=== PATIENT | female | born 1975 | race American Indian/Alaskan Native ===

== ENCOUNTER 2018-04-02 06:59 | Day surgery (SDC) | payer MEDICAID ==
[2018-04-02] VITALS (10 sets, daily range): BP systolic 93–108; BP diastolic 59–74
[~2018-04-02] VITALS: Ht 157.5 cm; Wt 90.9 kg
[~2018-04-02 06:59] MED LIST: ATOR10TA87 PO; CARV6.253 PO; ENOX100D2 SQ; FURO-149 PO; LISI-604 PO; SPIR50TA5 PO
[2018-04-02] MEDS ORDERED: normal saline 1000ml 1,000 ML IV PRN (07:20)
[2018-04-02] MEDS ORDERED: albumin 25% 50mL bottle X 2 BOTTLES IV ONE (07:20)
[2018-04-02] MEDS ORDERED: RIVA20TA PO (07:30)
[2018-04-02] MEDS ORDERED: LOSA25TA96 PO (07:30)
[2018-04-02] MEDS ORDERED: ASPI-611 PO (07:30)
[2018-04-02] MEDS ORDERED: LIDOcaine 1% 30ml preserv. free vial SQ ONE (08:30)
== END 2018-04-02 10:40 | disposition home or self-care (01) ==
LOC: SSTAY O 06:59
PROVIDERS: ATTEND Radiology Diagnostic Radiology
DX: J90 Pleural effusion, not elsewhere classified (principal); R18.8 Other ascites; K74.60 Unspecified cirrhosis of liver; I42.8 Other cardiomyopathies; I11.0 Hypertensive heart disease with heart failure; I50.9 Heart failure, unspecified; E78.5 Hyperlipidemia, unspecified; F10.21 Alcohol dependence, in remission; F15.11 Other stimulant abuse, in remission; Z87.01 Personal history of pneumonia (recurrent); Z86.14 Personal history of Methicillin resistant Staphylococcus aureus infection; Z86.74 Personal history of sudden cardiac arrest; Z87.891 Personal history of nicotine dependence; Z79.82 Long term (current) use of aspirin; Z86.73 Personal history of transient ischemic attack (TIA), and cerebral infarction without residual deficits; Z79.899 Other long term (current) drug therapy; Z98.890 Other specified postprocedural states
CPT/HCPCS: 32555; 49083; 71045; C1729; J3490; J7030

== ENCOUNTER 2018-07-30 06:56 | Day surgery (SDC) | payer MEDICAID ==
[~2018-07-30] VITALS: Ht 157.5 cm; Wt 96.3 kg
[2018-07-30] VITALS (7 sets, daily range): BP systolic 103–125; BP diastolic 64–75
[~2018-07-30 06:56] MED LIST changes: +ASPI-611 PO; -ENOX100D2 SQ; +LIDOcaine 1% 30ml preserv. free vial SQ STA; -LISI-604 PO; +LOSA25TA96 PO; +RIVA20TA PO; -SPIR50TA5 PO
[2018-07-30] MEDS ORDERED: albumin 25% 100mL bottle x 1 IV PRN (07:15)
[2018-07-30] MEDS ORDERED: normal saline 1000ml 1,000 ML IV PRN (07:15)
[2018-07-30] MEDS ORDERED: LACT1CAP65 PO (07:25)
[2018-07-30] MEDS ORDERED: LEVO50TA8 PO (07:25)
[2018-07-30] MEDS ORDERED: ASCO500C15 PO (07:25)
[2018-07-30] MEDS ORDERED: FERR134T2 PO (07:25)
== END 2018-07-30 09:42 | disposition home or self-care (01) ==
LOC: SSTAY O 06:56
PROVIDERS: ATTEND Radiology Vascular & Interventional Radiology
DX: R18.8 Other ascites (principal); Z53.8 Procedure and treatment not carried out for other reasons; I50.9 Heart failure, unspecified; J91.8 Pleural effusion in other conditions classified elsewhere; I42.9 Cardiomyopathy, unspecified; Z86.73 Personal history of transient ischemic attack (TIA), and cerebral infarction without residual deficits; Z79.899 Other long term (current) drug therapy; Z98.890 Other specified postprocedural states
CPT/HCPCS: 49083; 76604; C1729; J7030; P9047

== ENCOUNTER 2018-11-11 07:38 | Day surgery (SDC) | payer MEDICAID ==
[2018-11-11] VITALS (13 sets, daily range): BP systolic 95–111; BP diastolic 50–77
[~2018-11-11] VITALS: Ht 157.5 cm; Wt 94.0 kg
[~2018-11-11 07:38] MED LIST changes: +ASCO500C15 PO; +FERR134T2 PO; +LACT1CAP65 PO; +LEVO50TA8 PO; -LIDOcaine 1% 30ml preserv. free vial SQ STA
[2018-11-11 09:57] LABS: AMYLASE,BODY FLUID 19 U/L; GLUCOSE,BODY FLUID 111 MG/DL; LDH,BODY FLUID 75 U/L; TOTAL PROTEIN,BODY FLUID 4.6 G/DL
[2018-11-11 10:33] LABS: BF RBC COUNT 84750 /CU MM; BF WBC COUNT 6 /CU MM (0-1000); BFAPPEAR BLOODY; BFCOLOR RED; BFVOLUME 60 ML
[2018-11-11 10:37] LABS: LYMPHOCYTES,BODY FLUID 30 %; MONOCYTES,BODY FLUID 10 %; NEUTROPHILS,BODY FLUID 60 %
== END 2018-11-11 12:12 | disposition home or self-care (01) ==
LOC: SSTAY O 07:38
PROVIDERS: ATTEND Radiology Diagnostic Radiology
DX: R18.8 Other ascites (principal); D64.9 Anemia, unspecified; I25.2 Old myocardial infarction; I42.8 Other cardiomyopathies; F15.10 Other stimulant abuse, uncomplicated; Z86.73 Personal history of transient ischemic attack (TIA), and cerebral infarction without residual deficits; Z95.0 Presence of cardiac pacemaker; Z79.82 Long term (current) use of aspirin; Z79.899 Other long term (current) drug therapy
CPT/HCPCS: 49083; 82150; 82945; 83615; 84157; 87070; 89051; C1729

== ENCOUNTER 2018-11-26 08:24 | Day surgery (SDC) | payer MEDICAID ==
[2018-11-26] VITALS (9 sets, daily range): BP systolic 87–103; BP diastolic 51–69
[~2018-11-26] VITALS: Ht 157.5 cm; Wt 99.6 kg
[~2018-11-26 08:24] MED LIST changes: -ASCO500C15 PO
[2018-11-26] MEDS ORDERED: Ibuprofen PO (09:24)
[2018-11-26] MEDS ORDERED: Amoxicillin PO (09:24)
[2018-11-26] MEDS ORDERED: CHOL100046 PO (09:24)
[2018-11-26] MEDS ORDERED: albumin 25% 100mL bottle x 1 IV PRN (11:10)
[2018-11-26 11:45] LABS: ALBUMIN,BODY FLUID 2.2 G/DL; GLUCOSE,BODY FLUID 107 MG/DL; LDH,BODY FLUID 64 U/L; TOTAL PROTEIN,BODY FLUID 4.1 G/DL
[2018-11-26 12:53] LABS: LYMPHOCYTES,BODY FLUID 30 %; NEUTROPHILS,BODY FLUID 16 %
[2018-11-26 13:05] LABS: BASOPHILS,BODY FLUID 0 %; BF MESOTHELIAL CELLS FEW; BF RBC COUNT 20500 /CU MM; BF WBC COUNT 83 /CU MM (0-1000); BFAPPEAR CLOUDY; BFCOLOR AMBER; BFVOLUME 60 ML; EOSINOPHILS,BODY FLUID 0 %
[2018-11-26 13:06] LABS: MONOCYTES,BODY FLUID 54 %
== END 2018-11-26 12:00 | disposition home or self-care (01) ==
LOC: SSTAY O 08:24
PROVIDERS: ATTEND Radiology Vascular & Interventional Radiology
DX: R18.8 Other ascites (principal); Z86.73 Personal history of transient ischemic attack (TIA), and cerebral infarction without residual deficits; Z95.0 Presence of cardiac pacemaker; Z79.899 Other long term (current) drug therapy
CPT/HCPCS: 49083; 82042; 82945; 83615; 84157; 87070; 89051; C1729; P9047

== ENCOUNTER 2018-11-26 14:31 | Outpatient (CLI) | payer MEDICAID ==
[~2018-11-26 14:31] MED LIST changes: +Amoxicillin PO; +CHOL100046 PO; +Ibuprofen PO
[2018-11-26 16:30] LABS: ABSOLUTE RETICS # 69200 /CUMM (23000-93000); BASOPHILS # (AUTO) 0.1 X10'3 (0-0.2); BASOPHILS % (AUTO) 1.1 % (0-1); EOSINOPHILS # (AUTO) 0.2 X10'3 (0-0.9); HEMATOCRIT 29.7 % (35.0-45.0); HEMOGLOBIN 9.6 g/dl (12.0-16.0); LYMPHOCYTES # (AUTO) 1.4 X10'3 (1.1-4.8); LYMPHOCYTES % (AUTO) 17.9 % (21-51); MEAN CORPUSCULAR HEMOGLOBIN 28.2 PG (27.0-31.0); MEAN CORPUSCULAR HGB CONC 32.2 g/dL (33.0-36.5); MEAN CORPUSCULAR VOLUME 87.7 FL (78-98); MEAN PLATELET VOLUME 9.3 FL (7.4-10.4); MONOCYTES # (AUTO) 0.6 X10'3 (0-0.9); MONOCYTES % (AUTO) 7.2 % (2-12); NEUTROPHILS # (AUTO) 5.5 X10'3 (1.8-7.7); NEUTROPHILS % (AUTO) 70.8 % (42-75); PLATELET COUNT 218 X10'3 (140-440); RED BLOOD COUNT 3.39 X10'6 (4.20-5.60); RED CELL DISTRIBUTION WIDTH 16.9 % (11.5-14.5); WHITE BLOOD COUNT 7.8 X10'3 (4.5-11.0)
[2018-11-26 16:52] LABS: ALANINE AMINOTRANSFERASE 13 U/L (12-78); ALBUMIN 3.3 G/DL (3.4-5.0); ALBUMIN/GLOBULIN RATIO 0.9 (1.1-1.5); ALKALINE PHOSPHATASE 97 IU/L (46-116); ANION GAP 12 (8-16); ASPARTATE AMINO TRANSFERASE 6 U/L (10-37); BILIRUBIN,DIRECT 0.2 MG/DL (0-0.3); BILIRUBIN,TOTAL 0.6 MG/DL (0.1-1.0); BLOOD UREA NITROGEN 22 MG/DL (7-18); BUN/CREATININE RATIO 21.6 (6.6-38.0); CALCIUM 8.5 MG/DL (8.5-10.1); CHLORIDE 107 MMOL/L (99-107); CREATININE 1.02 MG/DL (0.40-0.90); GLUCOSE 96 MG/DL (70-104); POTASSIUM 3.8 MMOL/L (3.5-5.1); SODIUM 143 MMOL/L (135-145); TOTAL CARBON DIOXIDE 24.1 MMOL/L (24-32); TOTAL PROTEIN 7.1 G/DL (6.4-8.2); eGFR 59 ML/MIN
== END 2018-11-26 23:59 | disposition home or self-care (01) ==
LOC: LAB 14:31
PROVIDERS: ATTEND Nurse Practitioner
DX: D64.9 Anemia, unspecified (principal); R18.8 Other ascites; Z79.899 Other long term (current) drug therapy; Z79.82 Long term (current) use of aspirin
CPT/HCPCS: 36415; 80053; 82248; 85025; 85045; 86304

== ENCOUNTER 2019-01-15 07:34 | Day surgery (SDC) | payer MEDICAID ==
[~2019-01-15] VITALS: Ht 157.5 cm; Wt 94.3 kg
[2019-01-15] MEDS ORDERED: ASCO500C15 PO (07:58)
[2019-01-15] MEDS ORDERED: albumin 25% 100mL bottle x 1 IV PRN (08:00)
[2019-01-15] MEDS ORDERED: normal saline 1000ml 1,000 ML IV PRN (08:00)
[2019-01-15 08:08] VITALS: BP 97/68
== END 2019-01-15 09:25 | disposition home or self-care (01) ==
LOC: SSTAY O 07:34
PROVIDERS: ATTEND Radiology Diagnostic Radiology
DX: R18.8 Other ascites (principal); I42.9 Cardiomyopathy, unspecified; I25.2 Old myocardial infarction; Z86.73 Personal history of transient ischemic attack (TIA), and cerebral infarction without residual deficits; Z95.0 Presence of cardiac pacemaker; Z79.899 Other long term (current) drug therapy
CPT/HCPCS: 76705; J7030

== ENCOUNTER 2019-05-23 07:42 | Day surgery (SDC) | payer MEDICAID ==
[2019-05-23] VITALS (8 sets, daily range): BP systolic 102–124; BP diastolic 69–84
[~2019-05-23] VITALS: Ht 157.5 cm; Wt 97.5 kg
[~2019-05-23 07:42] MED LIST changes: +ASCO500C15 PO; -ASPI-611 PO; -Amoxicillin PO; -Ibuprofen PO; -RIVA20TA PO
[2019-05-23] MEDS ORDERED: normal saline 1000ml 1,000 ML IV PRN (08:05)
[2019-05-23] MEDS ORDERED: albumin 25% 100mL bottle x 1 IV PRN (08:05)
== END 2019-05-23 10:35 | disposition home or self-care (01) ==
LOC: SSTAY O 07:42 → MED 3N 07:44 → SSTAY O 10:35
PROVIDERS: ATTEND Radiology Vascular & Interventional Radiology
DX: R18.8 Other ascites (principal); I42.9 Cardiomyopathy, unspecified; I25.2 Old myocardial infarction; Z86.73 Personal history of transient ischemic attack (TIA), and cerebral infarction without residual deficits; Z79.899 Other long term (current) drug therapy
CPT/HCPCS: 49083; C1729; P9047

== ENCOUNTER 2019-08-12 07:45 | Day surgery (SDC) | payer MEDICAID ==
[~2019-08-12] VITALS: Ht 157.5 cm; Wt 107.3 kg
[~2019-08-12 07:45] MED LIST changes: -LACT1CAP65 PO
[2019-08-12] MEDS ORDERED: albumin 25% 100mL bottle x 1 IV PRN (08:25)
[2019-08-12] MEDS ORDERED: normal saline 1000ml 1,000 ML IV PRN (08:25)
[2019-08-12 08:30] VITALS: BP 120/88
[2019-08-12 08:45] VITALS: BP 110/78
[2019-08-12 09:00] VITALS: BP 107/69
[2019-08-12 09:20] VITALS: BP 108/78
[2019-08-12 09:32] VITALS: BP 105/67
[2019-08-12 09:35] VITALS: BP 117/54
[2019-08-12 10:10] LABS: AMYLASE,BODY FLUID 18 U/L; GLUCOSE,BODY FLUID 102 MG/DL; LDH,BODY FLUID 72 U/L; TOTAL PROTEIN,BODY FLUID 4.8 G/DL
[2019-08-12 10:15] LABS: BASOPHILS,BODY FLUID 2 %; LYMPHOCYTES,BODY FLUID 26 %; MONOCYTES,BODY FLUID 41 %; NEUTROPHILS,BODY FLUID 31 %
[2019-08-12 10:19] LABS: BF MESOTHELIAL CELLS FEW; BF RBC COUNT 1725 /CU MM; BF WBC COUNT 103 /CU MM (0-1000); BFAPPEAR CLOUDY; BFCOLOR YELLOW; BFVOLUME 59 ML
== END 2019-08-12 09:38 | disposition home or self-care (01) ==
LOC: SSTAY O 07:45
PROVIDERS: ATTEND Radiology Diagnostic Radiology
DX: R18.8 Other ascites (principal); I42.9 Cardiomyopathy, unspecified; I25.2 Old myocardial infarction; Z86.73 Personal history of transient ischemic attack (TIA), and cerebral infarction without residual deficits; Z95.0 Presence of cardiac pacemaker; Z79.899 Other long term (current) drug therapy
CPT/HCPCS: 36415; 49083; 82150; 82945; 83615; 84157; 87070; 89051; P9047

== ENCOUNTER 2019-12-16 07:03 | Day surgery (SDC) | payer MEDICAID ==
[2019-12-16] VITALS (9 sets, daily range): BP systolic 87–106; BP diastolic 50–74
[~2019-12-16] VITALS: Ht 157.5 cm; Wt 103.7 kg
[~2019-12-16 07:03] MED LIST changes: -ASCO500C15 PO; +ASCO500C18 PO
[2019-12-16] MEDS ORDERED: albumin 25% 100mL bottle x 1 IV PRN (07:35)
[2019-12-16] MEDS ORDERED: CHOL500050 PO (07:53)
[2019-12-16] MEDS ORDERED: LACT1CAP73 PO (07:53)
== END 2019-12-16 10:45 | disposition home or self-care (01) ==
LOC: SSTAY O 07:03
PROVIDERS: ATTEND Radiology Vascular & Interventional Radiology
DX: R18.8 Other ascites (principal); I42.9 Cardiomyopathy, unspecified; F15.10 Other stimulant abuse, uncomplicated; Z86.73 Personal history of transient ischemic attack (TIA), and cerebral infarction without residual deficits; Z95.0 Presence of cardiac pacemaker; Z79.899 Other long term (current) drug therapy
CPT/HCPCS: 49083; P9047

== ENCOUNTER 2020-06-14 16:39 | Emergency (ER) | payer MEDICAID ==
[~2020-06-14] VITALS: Ht 157.5 cm; Wt 100.0 kg
[~2020-06-14 16:39] MED LIST changes: +CHOL500050 PO; +LACT1CAP73 PO
[2020-06-14 18:28] LABS: EOSINOPHILS # (AUTO) 0.2 X10'3 (0-0.9); RED BLOOD COUNT 4.59 X10'6 (4.20-5.60)
[2020-06-14 18:30] LABS: BASOPHILS # (AUTO) 0.1 X10'3 (0-0.2); EOSINOPHILS % (AUTO) 1.3 % (0-6); HEMATOCRIT 41.5 % (35.0-45.0); HEMOGLOBIN 13.6 g/dl (12.0-16.0); LYMPHOCYTES % (AUTO) 16.5 % (21-51); MEAN CORPUSCULAR HEMOGLOBIN 29.7 PG (27.0-31.0); MEAN CORPUSCULAR HGB CONC 32.9 g/dL (33.0-36.5); MEAN CORPUSCULAR VOLUME 90.5 FL (78-98); MEAN PLATELET VOLUME 9.5 FL (7.4-10.4); MONOCYTES # (AUTO) 0.8 X10'3 (0-0.9); MONOCYTES % (AUTO) 6.6 % (2-12); NEUTROPHILS # (AUTO) 8.9 X10'3 (1.8-7.7); NEUTROPHILS % (AUTO) 74.6 % (42-75); PLATELET COUNT 197 X10'3 (140-440); RED CELL DISTRIBUTION WIDTH 15.2 % (11.5-14.5)
[2020-06-14 18:43] LABS: ALANINE AMINOTRANSFERASE 21 U/L (12-78); ALBUMIN 3.9 G/DL (3.4-5.0); ALBUMIN/GLOBULIN RATIO 0.9 (1.1-1.5); ALKALINE PHOSPHATASE 123 IU/L (46-116); ANION GAP 14 (8-16); ASPARTATE AMINO TRANSFERASE 14 U/L (10-37); BILIRUBIN,TOTAL 1.3 MG/DL (0.1-1.0); BLOOD UREA NITROGEN 23 MG/DL (7-18); BUN/CREATININE RATIO 21.7 (6.6-38.0); CALCIUM 8.9 MG/DL (8.5-10.1); CHLORIDE 102 MMOL/L (99-107); CREATININE 1.06 MG/DL (0.40-0.90); GLUCOSE 110 MG/DL (70-104); POTASSIUM 4.3 MMOL/L (3.5-5.1); SODIUM 139 MMOL/L (135-145); TOTAL CARBON DIOXIDE 23.4 MMOL/L (24-32); TOTAL PROTEIN 8.1 G/DL (6.4-8.2); eGFR 56 ML/MIN
--- NOTE | 2020-06-14 19:29 | NUR ---
PLACED CALL TO [employer] AND SPOKE TO NELY, PER REP PT HAS A PACEMAKER MODEL A219 WHICH DOES NOT WORK WITH OUR INTERROGATOR MACHINE. A REP WILL BE REACHING OUT TO US.
[2020-06-14 20:44] VITALS: BP 118/97
== END 2020-06-14 21:13 | disposition home or self-care (01) ==
LOC: ER 16:40
DX: I50.9 Heart failure, unspecified (principal); I48.91 Unspecified atrial fibrillation; F12.90 Cannabis use, unspecified, uncomplicated; F15.90 Other stimulant use, unspecified, uncomplicated; Z72.89 Other problems related to lifestyle; Z87.01 Personal history of pneumonia (recurrent); Z79.899 Other long term (current) drug therapy
CPT/HCPCS: 36415; 71045; 80053; 83735; 83880; 84484; 85025; 93005; 99285